=== PATIENT | female | born 1935 | race Caucasian/White ===

== ENCOUNTER 2017-09-20 06:23 | Inpatient (IN) | payer MEDICARE, OTHER ==
[~2017-09-20] VITALS: Ht 162.6 cm; Wt 85.9 kg
[~2017-09-20 06:23] MED LIST: BACITRACIN 50,000 UNIT ONE; BUPIVACAINE 0.25% ONE; BUPIVACAINE/PF 0.5% ONE; EPINEPHRINE 1 MG/ML, 1ML ONE; THROMBIN 5,000 UNIT VIAL TP ONE
[2017-09-20] MEDS ORDERED: FENTANYL PF 250 MCG/5ML ONE (07:46)
[2017-09-20] MEDS ORDERED: PROPOFOL 100 ML ONE (07:46)
[2017-09-20] MEDS ORDERED: LACTATED RINGERS 1,000 ML IV SCH (07:50)
[2017-09-20 07:57] VITALS: BP 155/81
[2017-09-20] MEDS ORDERED: CHRO1000 PO (08:13)
[2017-09-20] MEDS ORDERED: TRIA1CAP3 PO (08:13)
[2017-09-20] MEDS ORDERED: MULT-6 PO (08:13)
[2017-09-20] MEDS ORDERED: FLUO20CA8 PO (08:13)
[2017-09-20] MEDS ORDERED: ANTI1CAP PEG (08:13)
[2017-09-20] MEDS ORDERED: CYAN10005 PO (08:13)
[2017-09-20] MEDS ORDERED: ALBU90AE INH (08:13)
[2017-09-20] MEDS ORDERED: LOSA100T6 PO (08:13)
[2017-09-20] MEDS ORDERED: SIMV20TA3 PO (08:13)
[2017-09-20] MEDS ORDERED: CHOL400T10 PO (08:13)
[2017-09-20] MEDS ORDERED: ESTR0.5T PO (08:13)
[2017-09-20] MEDS ORDERED: RANI300T PO (08:13)
[2017-09-20] MEDS ORDERED: MONT10TA9 PO (08:21)
[2017-09-20] MEDS ORDERED: AMLO2.5T PO (08:21)
[2017-09-20] MEDS ORDERED: ACETAMINOPHEN 500 MG TABLET ONE (08:46)
[2017-09-20] MEDS ORDERED: GABAPENTIN 300 MG CAPSULE ONE (08:46)
[2017-09-20] MEDS ORDERED: DEXAMETHASONE 4 MG/ML, 1ML ONE ×2 (08:58)
[2017-09-20] MEDS ORDERED: CEFAZOLIN 1,000 MG ONE ×2 (08:59)
[2017-09-20] MEDS ORDERED: ONDANSETRON ODT 8 MG PO ONE (09:00)
[2017-09-20] MEDS ORDERED: ACETAMINOPHEN 500 MG TABLET PO ONE (09:00)
[2017-09-20] MEDS ORDERED: OxyconTIN ER 10 MG TAB.ER PO ONE (09:00)
[2017-09-20] MEDS ORDERED: GABAPENTIN 300 MG CAPSULE PO ONE (09:00)
[2017-09-20] MEDS ORDERED: FAMOTIDINE 20 MG TABLET PO ONE (09:00)
[2017-09-20] MEDS ORDERED: BUPIVACAINE/PF 0.5% INFIL ONE ×2 (09:39→09:40)
[2017-09-20] MEDS ORDERED: FENTANYL PF 100 MCG/2ML ONE (10:23)
[2017-09-20] MEDS ORDERED: FENTANYL PF 100 MCG/2ML IV PRN (10:30)
[2017-09-20] MEDS ORDERED: ALBUTEROL SULFATE 2.5 MG/3 ML NPPB PRN ×2 (10:30→12:00)
[2017-09-20] MEDS ORDERED: OXYcodone 5 MG/5 ML ORAL.SOL UDC PO PRN (10:30)
[2017-09-20] MEDS ORDERED: MEPERIDINE/PF 25MG/0.5ML IVPush PRN (10:30)
[2017-09-20] MEDS ORDERED: morphine SULFATE 10 MG/ML, 1ML IV PRN (10:30)
[2017-09-20] MEDS ORDERED: HYDROmorphone 1 MG/ML, 1ML IV PRN (10:30)
[2017-09-20] MEDS ORDERED: ONDANSETRON 2MG/ML, 2ML IVPush PRN ×2 (10:30→12:00)
[2017-09-20] MEDS ORDERED: LABETALOL 5MG/ML, 20ML IV PRN (10:30)
[2017-09-20] MEDS ORDERED: DIAZEPAM 5 MG/ML, 2ML IVPush PRN (10:30)
[2017-09-20] MEDS ORDERED: hydrALAzine 20 MG/ML, 1ML IV PRN (10:30)
[2017-09-20] MEDS ORDERED: PROMETHAZINE 12.5 MG SUPP PR PRN (10:30)
[2017-09-20] MEDS ORDERED: ALBUTEROL/IPRATROPIUM 2.5MG/0.5MG, 3 ML NPPB PRN (10:30)
[2017-09-20] MEDS ORDERED: FENTANYL PF 100 MCG/2ML EPIDPUSH ONE (10:39)
[2017-09-20] MEDS ORDERED: BUPIVACAINE/PF 0.25% EPIDPUSH ONE (10:39)
[2017-09-20] MEDS ORDERED: PROPOFOL 10 MG/ML, 20ML ONE (10:57)
[2017-09-20] MEDS ORDERED: ROCURONIUM 10MG/ML,5ML ONE (10:59)
[2017-09-20] MEDS ORDERED: SENNA/DOCUSATE TABLET PO PRN (12:00)
[2017-09-20] MEDS ORDERED: DIPHENHYDRAMINE 50 MG/ML, 1ML IVPush PRN (12:00)
[2017-09-20] MEDS ORDERED: CYCLOBENZAPRINE 10 MG TABLET PO PRN (12:00)
[2017-09-20] MEDS ORDERED: PHARMACY MAY ADJ FOR RENAL FX MC PRN (12:00)
[2017-09-20] MEDS ORDERED: PROMETHAZINE 25 MG/ML, 1ML IM PRN (12:00)
[2017-09-20] MEDS ORDERED: BISACODYL 10 MG SUPP PR PRN (12:00)
[2017-09-20] MEDS ORDERED: HYDROcodone/APAP 5/325 TABLET PO PRN (12:00)
[2017-09-20] MEDS ORDERED: HYDROcodone/APAP 10/325 MG TABLET PO PRN (12:00)
[2017-09-20] MEDS ORDERED: morphine SULFATE 10 MG/ML, 1ML IVPush PRN (12:00)
[2017-09-20] MEDS ORDERED: OXYcodone 5 MG/5 ML ORAL.SOL UDC ONE (12:34)
[2017-09-20] MEDS ORDERED: morphine SULFATE 10 MG/ML, 1ML ONE (13:02)
[2017-09-20 14:37] VITALS: BP 115/65
[2017-09-20] MEDS: D5%-0.9% NACL+KCL 20MEQ 1,000 ML IV SCH (16:50)
[2017-09-20] MEDS: CEFAZOLIN PMX 1GM/50ML 50 ML IVPB SCH (16:50)
[2017-09-20] MEDS: MULTIVITAMIN 1 TABLET PO SCH (21:00)
[2017-09-20] MEDS: SODIUM CHLORIDE FLUSH 10ML SYR IVF SCH (21:00)
[2017-09-20 21:24] VITALS: BP 106/42
[2017-09-21 00:15] VITALS: BP 124/70
[2017-09-21] MEDS: OXYcodone/APAP 5/325MG TABLET PO PRN ×5 (01:27→22:27)
[2017-09-21] MEDS: MONTELUKAST 10 MG TABLET PO SCH ×2 (01:27→22:26)
[2017-09-21] MEDS: FAMOTIDINE 40 MG TABLET PO SCH ×3 (01:28→22:26)
[2017-09-21] MEDS: SIMVASTATIN 20 MG TABLET PO SCH ×2 (01:28→22:26)
[2017-09-21] MEDS: CEFAZOLIN PMX 1GM/50ML 50 ML IVPB SCH (01:53)
[2017-09-21 04:00] VITALS: BP 115/65
[2017-09-21] MEDS: D5%-0.9% NACL+KCL 20MEQ 1,000 ML IV SCH ×2 (06:21→22:26)
[2017-09-21 06:39] VITALS: BP 128/68
[2017-09-21] MEDS ORDERED: ALBUTEROL SULFATE 2.5 MG/3 ML NPPB PRN (07:00)
[2017-09-21] MEDS: AMLODIPINE 2.5 MG TABLET PO SCH (09:52)
[2017-09-21] MEDS: LOSARTAN 50MG TABLET PO SCH (09:53)
[2017-09-21] MEDS: FLUOXETINE HCL 20 MG CAPSULE PO SCH (09:53)
[2017-09-21] MEDS: TRIAMTERENE-HCTZ 37.5/25 MG TABLET PO SCH (09:53)
[2017-09-21] MEDS: ESTRADIOL 0.5 MG TABLET PO SCH (10:09)
[2017-09-21] MEDS: SODIUM CHLORIDE FLUSH 10ML SYR IVF SCH ×2 (10:09→22:27)
[2017-09-21] MEDS: MULTIVITAMIN 1 TABLET PO SCH ×2 (10:10→22:26)
[2017-09-21] MEDS: CYANOCOBALAMIN 1,000 MCG TABLET PO SCH (10:10)
[2017-09-21] MEDS: CHOLECALCIFEROL 400 UNITS TABLET PO SCH (10:10)
[2017-09-21 14:22] VITALS: BP 139/76
[2017-09-21 19:04] VITALS: BP 122/78
[2017-09-21] MEDS: ENOXAPARIN 30 MG/0.3 ML SQ SCH (22:27)
[2017-09-22 02:40] VITALS: BP 145/72
[2017-09-22] MEDS: OXYcodone/APAP 5/325MG TABLET PO PRN ×4 (05:40→23:51)
[2017-09-22 07:54] VITALS: BP 118/67
[2017-09-22] MEDS: FLUOXETINE HCL 20 MG CAPSULE PO SCH (09:11)
[2017-09-22] MEDS: TRIAMTERENE-HCTZ 37.5/25 MG TABLET PO SCH (09:11)
[2017-09-22] MEDS: AMLODIPINE 2.5 MG TABLET PO SCH (09:11)
[2017-09-22] MEDS: MULTIVITAMIN 1 TABLET PO SCH ×2 (09:12→20:11)
[2017-09-22] MEDS: LOSARTAN 50MG TABLET PO SCH (09:12)
[2017-09-22] MEDS: CYANOCOBALAMIN 1,000 MCG TABLET PO SCH (09:14)
[2017-09-22] MEDS: CHOLECALCIFEROL 400 UNITS TABLET PO SCH (09:15)
[2017-09-22] MEDS: ENOXAPARIN 30 MG/0.3 ML SQ SCH ×2 (09:15→20:10)
[2017-09-22] MEDS: FAMOTIDINE 40 MG TABLET PO SCH ×2 (09:15→20:09)
[2017-09-22] MEDS: ESTRADIOL 0.5 MG TABLET PO SCH (09:15)
[2017-09-22] MEDS: SODIUM CHLORIDE FLUSH 10ML SYR IVF SCH ×2 (09:16→20:08)
[2017-09-22 12:49] VITALS: BP 133/70
[2017-09-22] MEDS: DEXAMETHASONE 4 MG/ML, 1ML IVPush SCH ×2 (13:38→20:08)
[2017-09-22] MEDS: D5%-0.9% NACL+KCL 20MEQ 1,000 ML IV SCH (18:36)
[2017-09-22 19:49] VITALS: BP 153/75
[2017-09-22] MEDS: SIMVASTATIN 20 MG TABLET PO SCH (20:09)
[2017-09-22] MEDS: MONTELUKAST 10 MG TABLET PO SCH (20:09)
[2017-09-23] MEDS ORDERED: DEXAMETHASONE 4 MG/ML, 1ML ONE (01:52)
[2017-09-23] MEDS: DEXAMETHASONE 4 MG/ML, 1ML IVPush SCH (02:02)
[2017-09-23 02:04] VITALS: BP 160/78
[2017-09-23] MEDS: OXYcodone/APAP 5/325MG TABLET PO PRN ×2 (05:28→20:01)
[2017-09-23 08:12] VITALS: BP 146/79
[2017-09-23] MEDS: D5%-0.9% NACL+KCL 20MEQ 1,000 ML IV SCH ×2 (08:51→21:20)
[2017-09-23] MEDS: ENOXAPARIN 30 MG/0.3 ML SQ SCH ×2 (08:51→21:00)
[2017-09-23] MEDS: LOSARTAN 50MG TABLET PO SCH (08:52)
[2017-09-23] MEDS: FAMOTIDINE 40 MG TABLET PO SCH ×2 (08:52→20:01)
[2017-09-23] MEDS: ESTRADIOL 0.5 MG TABLET PO SCH (08:52)
[2017-09-23] MEDS: MULTIVITAMIN 1 TABLET PO SCH ×2 (08:52→20:01)
[2017-09-23] MEDS: TRIAMTERENE-HCTZ 37.5/25 MG TABLET PO SCH (08:52)
[2017-09-23] MEDS: AMLODIPINE 2.5 MG TABLET PO SCH (08:52)
[2017-09-23] MEDS: CHOLECALCIFEROL 400 UNITS TABLET PO SCH (08:52)
[2017-09-23] MEDS: FLUOXETINE HCL 20 MG CAPSULE PO SCH (08:53)
[2017-09-23] MEDS: SODIUM CHLORIDE FLUSH 10ML SYR IVF SCH ×2 (08:56→20:01)
[2017-09-23] MEDS: CYANOCOBALAMIN 1,000 MCG TABLET PO SCH (09:00)
[2017-09-23 13:25] VITALS: BP 154/77
[2017-09-23 19:05] VITALS: BP 158/76
[2017-09-23] MEDS: MONTELUKAST 10 MG TABLET PO SCH (20:01)
[2017-09-23] MEDS: SIMVASTATIN 20 MG TABLET PO SCH (20:01)
[2017-09-24] MEDS: OXYcodone/APAP 5/325MG TABLET PO PRN ×5 (00:17→20:18)
[2017-09-24 00:51] VITALS: BP 148/71
[2017-09-24 06:43] VITALS: BP 149/67
[2017-09-24] MEDS: MULTIVITAMIN 1 TABLET PO SCH ×2 (08:31→20:17)
[2017-09-24] MEDS: FLUOXETINE HCL 20 MG CAPSULE PO SCH (08:31)
[2017-09-24] MEDS: TRIAMTERENE-HCTZ 37.5/25 MG TABLET PO SCH (08:32)
[2017-09-24] MEDS: CYANOCOBALAMIN 1,000 MCG TABLET PO SCH (08:32)
[2017-09-24] MEDS: AMLODIPINE 2.5 MG TABLET PO SCH (08:32)
[2017-09-24] MEDS: ESTRADIOL 0.5 MG TABLET PO SCH (08:33)
[2017-09-24] MEDS: FAMOTIDINE 40 MG TABLET PO SCH ×2 (08:33→20:17)
[2017-09-24] MEDS: LOSARTAN 50MG TABLET PO SCH (08:33)
[2017-09-24] MEDS: CHOLECALCIFEROL 400 UNITS TABLET PO SCH (08:33)
[2017-09-24] MEDS: SODIUM CHLORIDE FLUSH 10ML SYR IVF SCH ×2 (08:34→20:17)
[2017-09-24] MEDS: ENOXAPARIN 30 MG/0.3 ML SQ SCH ×2 (08:34→20:18)
[2017-09-24] MEDS ORDERED: ENOX30SY4 SC (09:34)
[2017-09-24] MEDS ORDERED: BISA10SU2 PR (09:36)
[2017-09-24] MEDS ORDERED: HYDR-3240 PO (09:39)
[2017-09-24] MEDS ORDERED: OXYC-302 PO (09:41)
[2017-09-24] MEDS ORDERED: CYCL5TAB PO (09:43)
[2017-09-24] MEDS ORDERED: CEPH-368 PO (09:47)
[2017-09-24] MEDS: D5%-0.9% NACL+KCL 20MEQ 1,000 ML IV SCH (11:11)
[2017-09-24 12:45] VITALS: BP 93/56
[2017-09-24 20:11] VITALS: BP 121/74
[2017-09-24] MEDS: SIMVASTATIN 20 MG TABLET PO SCH (20:17)
[2017-09-24] MEDS: MONTELUKAST 10 MG TABLET PO SCH (20:17)
[2017-09-25] MEDS: OXYcodone/APAP 5/325MG TABLET PO PRN ×3 (01:36→12:21)
[2017-09-25 01:38] VITALS: BP 116/74
[2017-09-25 07:19] VITALS: BP 122/72
[2017-09-25] MEDS: CHOLECALCIFEROL 400 UNITS TABLET PO SCH (08:09)
[2017-09-25] MEDS: ESTRADIOL 0.5 MG TABLET PO SCH (08:09)
[2017-09-25] MEDS: MULTIVITAMIN 1 TABLET PO SCH (08:09)
[2017-09-25] MEDS: ENOXAPARIN 30 MG/0.3 ML SQ SCH (08:09)
[2017-09-25] MEDS: CYANOCOBALAMIN 1,000 MCG TABLET PO SCH (08:10)
[2017-09-25] MEDS: FLUOXETINE HCL 20 MG CAPSULE PO SCH (08:10)
[2017-09-25] MEDS: TRIAMTERENE-HCTZ 37.5/25 MG TABLET PO SCH (08:10)
[2017-09-25] MEDS: AMLODIPINE 2.5 MG TABLET PO SCH (08:10)
[2017-09-25] MEDS: FAMOTIDINE 40 MG TABLET PO SCH (08:10)
[2017-09-25] MEDS: LOSARTAN 50MG TABLET PO SCH (08:10)
[2017-09-25] MEDS: SODIUM CHLORIDE FLUSH 10ML SYR IVF SCH (08:11)
[2017-09-25] MEDS: D5%-0.9% NACL+KCL 20MEQ 1,000 ML IV SCH ×2 (13:20)
[2017-09-25 13:45] VITALS: BP 148/69
== END 2017-09-25 14:47 | DRG 453 ==
LOC: ORIP 06:23 → 4NOR 13:25
PROVIDERS: ADMIT Neurological Surgery; ATTEND Neurological Surgery
PROC: 4A11X4G Monitoring of Peripheral Nervous Electrical Activity, Intraoperative, External Approach (ICD-10-PCS; 2017-09-20)
PROC: 0SG3071 Fusion of Lumbosacral Joint with Autologous Tissue Substitute, Posterior Approach, Posterior Column, Open Approach (ICD-10-PCS; 2017-09-20)
PROC: 00UT0JZ Supplement Spinal Meninges with Synthetic Substitute, Open Approach (ICD-10-PCS; 2017-09-20)
PROC: 0SG30AJ Fusion of Lumbosacral Joint with Interbody Fusion Device, Posterior Approach, Anterior Column, Open Approach (ICD-10-PCS; principal; 2017-09-20 09:15)
DX: M51.36 Other intervertebral disc degeneration, lumbar region (principal); J96.21 Acute and chronic respiratory failure with hypoxia; G96.11 Dural tear; G89.29 Other chronic pain; M43.17 Spondylolisthesis, lumbosacral region; M48.062 Spinal stenosis, lumbar region with neurogenic claudication; M54.17 Radiculopathy, lumbosacral region; Z75.1 Person awaiting admission to adequate facility elsewhere; Z88.8 Allergy status to other drugs, medicaments and biological substances
CPT/HCPCS: 72100; C1713; C1776; J0171; J0690; J1100; J1650; J2704; J3010; J3490; Q0162; C1751; C1762; C1781; J3480; J7120